=== PATIENT | female | born 2000 | race Caucasian/White ===

== ENCOUNTER 2024-07-02 04:35 | Inpatient (IN) | payer OTHER, SELFPAY ==
[2024-07-02] VITALS (59 sets, daily range): BP systolic 95–149; BP diastolic 56–101; PULSE 70–131; RESP 16–20; TEMP 36.7–37.3; O2SAT 89–100; BMI 26.6
[2024-07-02] MEDS: RINGERS LACTATED 1000 ML 1,000 ML 100 ML IV (05:15)
[2024-07-02] MEDS: CLINDAMYCIN 900MG IVPB 900 MG in PRE-MIXED 1 BAG 50 MG IV (05:30)
--- NOTE | 2024-07-02 05:37 | PD.LDHP ---
Documentation for date of: 07/02/24 OB Labor/Induct. HPI History of Present Illness Chief complaint: Active labor : 2 Para: 0 Term pregnancies: 0 History of Abortions: Spontaneous and Elective: 1 History of sections: No History of : No AAKASH: 07/10/24 Gestational Age (weeks): 38 Gestational Age (days): 6 History of present illness: Patient is a 23-year-old -0-1-0 history of 1 miscarriage in the past who presented to labor and delivery in active labor 6 cm dilated with a moderate amount of vaginal bleeding. heart tones are category 1. Patient is neha regularly every 2 minutes. She was admitted in labor and does desire epidural. She is positive for GBBS and is allergic to penicillin. Plan to start clindamycin. She is O- and received RhoGAM this . History of Present Dating criteria: LMP confirmed by 1st trimester US Ultrasounds: normal mid trimester US Obstetrical complications: none Narrative: Anxiety/depression on no medications this Labs Maternal Blood Type: O Neg Labs: Positive: Rubella Titre and Group Beta Strep, Negative: RPR, Hepatitis B, HIV, Chlamydia and Gonorrhea and Unknown: Herpes Type 1 and Herpes Type 2 Review of Systems Constitutional Constitutional: Reports system reviewed and no additional complaints, except as documented Comments: Patient reports vaginal bleeding start this morning no loss of fluids good movement and painful regular uterine contractions every 2 to 3 minutes. Patient has been laboring at home almost 24 hours. Past Medical History Surgical History SURGICAL: Negative Section Past Medical History Comments PMH COMMENT: History of cholecystectomy, history of arthroscopy on both hips, history of tonsillectomy, history of wisdom teeth removal. History of anxiety depression. History of Prozac use prior to . Meds Home Medications and Allergies Home Medications ?Medication ?Instructions ?Recorded ?Confirmed ?Type No Known Home Medications 07/02/24 07/02/24 History Allergies Allergy/AdvReac Type Severity Reaction Status Date / Time amoxicillin Allergy Severe Hives Verified 07/02/24 05:44 Penicillins Allergy Severe Hives Verified 07/02/24 05:44 OB Exam Physical Exam Vital signs: Pulse BP Pulse Ox 108 H 126/78 98 07/02/24 04:51 07/02/24 04:51 07/02/24 05:33 Routine Abdominal Exam Abdominal: Present soft Detailed Labor and Delivery Exam Dilation (cm): 6 Effacement (%): 90 Cervix position: anterior station: -1 Consistency: soft Presentation: Vertex Membranes: intact monitor accelerations: 15x15 monitor decelerations: None penitentiary variability: Moderate (11-25) Contraction frequency (min): 2 Contraction duration (sec): 60 Tachysystole: No Contraction intensity: Strong OB Assessment & Plan Additional Plan Induction method: none Plan: anticipate NVD and GBS prophylaxis tx Additional Plan Comment: Start clindamycin for positive GBBS as patient is allergic to penicillin. 2 units on hold for moderate vaginal bleeding. Patient desires epidural and anesthesia has been called.
[2024-07-02 05:46] LABS: Basophils % (Auto) 0 % (0-2.5); Eosinophils % (Auto) 0 % (0-10); Hematocrit 40.7 % (36.0-46.0); Hemoglobin 13.9 g/dL (12.0-16.0); Immature Granulocytes % (Auto) 0 % (0-0); Immature Granulocytes Auto 0.04 Thou/mm3 (0.00-0.00); Lymphocytes # (Auto) 1.2 Thou/mm3 (1.0-4.8); Lymphocytes % (Auto) 12 % (10-50); Mean Corpuscular HGB Conc 34.2 g/dl (31.0-37.0); Mean Corpuscular Hemoglobin 28.5 pg (25.0-35.0); Mean Corpuscular Volume 84 fL (80-100); Monocytes # (Auto) 0.2 Thou/mm3 (0.0-0.8); Monocytes % (Auto) 2 % (0-12); Neutrophils # (Auto) 8.2 Thou/mm3 (1.8-7.7); Neutrophils % (Auto) 85 % (37-80); Nucleated Red Blood Cell % 0 /100 WBC (0); Platelet Count 225 Thou/mm3 (140-440); RDW Standard Deviation 40.2 fL (36.4-46.3); Red Blood Count 4.87 Miln/mm3 (4.00-5.20); White Blood Count 9.6 Thou/mm3 (3.6-11.0)
[2024-07-02 06:28] LABS: Syphilis Nonreactive (Nonreactive)
[2024-07-02] MEDS: OXYTOCIN in NS 20 units 20 UNIT/1,000 ML BAG 125 UNIT IV (06:44)
[2024-07-02] MEDS: LIDOCAINE HCL 1% 20 ML VIAL INFL (06:56)
[2024-07-02] MEDS: BENZO/LANO/ALOE (Dermoplast) 60 GM CAN 1 SPRAY TOP ×2 (07:30→14:37)
[2024-07-02] MEDS: KETOROLAC INJ 30 MG/ML VIAL IVP (08:21)
[2024-07-02] MEDS: DOCUSATE SOD 100 MG CAPSULE PO ×2 (08:25→21:00)
[2024-07-02 14:20] LABS: Basophils % (Auto) 0 % (0-2.5); Eosinophils % (Auto) 0 % (0-10); Hematocrit 32.1 % (36.0-46.0); Hemoglobin 11.1 g/dL (12.0-16.0); Immature Granulocytes % (Auto) 1 % (0-0); Immature Granulocytes Auto 0.08 Thou/mm3 (0.00-0.00); Lymphocytes # (Auto) 1.6 Thou/mm3 (1.0-4.8); Lymphocytes % (Auto) 10 % (10-50); Mean Corpuscular HGB Conc 34.6 g/dl (31.0-37.0); Mean Corpuscular Hemoglobin 28.8 pg (25.0-35.0); Mean Corpuscular Volume 83 fL (80-100); Monocytes # (Auto) 0.9 Thou/mm3 (0.0-0.8); Monocytes % (Auto) 6 % (0-12); Neutrophils % (Auto) 84 % (37-80); Nucleated Red Blood Cell % 0 /100 WBC (0); Platelet Count 228 Thou/mm3 (140-440); RDW Standard Deviation 40.2 fL (36.4-46.3); Red Blood Count 3.85 Miln/mm3 (4.00-5.20); White Blood Count 15.6 Thou/mm3 (3.6-11.0)
--- NOTE | 2024-07-02 15:38 | OBDSUM_ITS ---
Data (Real) Data Hx Section: No Maternal Blood Type: O Neg Rubella Titre: Positive RPR: Non-reactive Labs: Positive: Group Beta Strep, Negative: RPR, Hepatitis B, HIV, Chlamydia and Gonorrhea and Unknown: Herpes Type 1 and Herpes Type 2 : 2 Term: 0 : 0 : 1 Delivery Data (Real) Labor Data Stimulated/Augmented: No Induction: No Rupture Type: SROM Amniotic Fluid: Clear Delivery Data EDC: 07/10/24 EDC calculated by:: LMP/early US confirmation Gestational age (weeks): 38 Gestational age (days): 6 Delivered by: Joelle Mariscal Software Support Technician at delivery: No (FOB) Episiotomy Episiotomy: Midline (Performed for decelerations with pushing) Perineal repair Sutures used for repair: 4.0 Chromic and other (2-0 chromic) EBL Estimated blood loss (ml): 400 Umbilical Cord Umbilical Vessels: 3 Nuchal Cord: None Body Cord: None Additional Procedures The [facility] 23 [facility] to [facility] and D about 0430 on 07/02/24 in active labor with a moderate amount of VB. She was neha every 2-3 minutes and was 6/90/-1 with a BBOW on presentation. GBBS+ and allergic to PCN. Clindamycin was started. Pt considered an epidural but had progressed rapidly to 8-9 cm and then declined epidural placement. Pt progressed to complete in about two hours and pushed approximately 15-20 minutes delivering a liveborn female. Findings: Liveborn female, DIANA, no nuchal cord or meconium. APGARS were 8 and 9. Weight is still pending but approximately 8 lbs. Delivery time was 0638. The placenta was complete, spontaneous and grossly WNL, delivering at 0644. A MLE was performed secondary to FHT decelerations to the 80s with pushing. It was repaired in a standard fashion with 4-0 and 2-0 chromic. Complications were none. Mom and baby were stable in the delivery room. Complications Complications: None [place] [employer] (Real) [place] [employer] 's name: Tori Kelly
[2024-07-02] MEDS: IBUPROFEN TAB 400 MG TABLET 800 MG PO (21:04)
[2024-07-03 04:00] VITALS: BP 96/57; PULSE 85; RESP 16; TEMP 36.6; O2SAT 97
[2024-07-03] MEDS: IBUPROFEN TAB 400 MG TABLET 800 MG PO (07:22)
[2024-07-03 09:38] VITALS: BP 107/68; PULSE 69; RESP 18; TEMP 36.3; O2SAT 97
[2024-07-03] MEDS: DOCUSATE SOD 100 MG CAPSULE PO (09:53)
[2024-07-03 10:16] VITALS: BP 95/60; PULSE 78; RESP 16; TEMP 36.4; O2SAT 100
[2024-07-03 12:00] VITALS: BP 105/62; PULSE 85; RESP 16; TEMP 36.4; O2SAT 97
--- NOTE | 2024-07-03 12:37 | PD.LDDS ---
DS: Providers Provider Date of admission: 07/02/24 04:51 Primary care physician: Physician No Primary/Family Admitting Provider: Joelle Mariscal MD Attending Provider on Admission: Ping Medina MD Consults: 07/02/24 08:04 Referral Routine Comment: Attending Provider on DC: Chastity Feng MD Discharging Provider: Chastity Feng MD DS: Diagnosis Discharge Diagnosis (1) Active labor at term: Status: Acute Problem List Completed Was Problem List Reviewed/Reconciled?: Yes Summary/Hosp Course Brief History: Patient is a 23-year-old -0-1-0 history of 1 miscarriage in the past who presented to labor and delivery in active labor 6 cm dilated with a moderate amount of vaginal bleeding. heart tones are category 1. Patient is neha regularly every 2 minutes. She was admitted in labor and does desire epidural. She is positive for GBBS and is allergic to penicillin. Plan to start clindamycin. She is O- and received RhoGAM this . She is now PPD 1 s/p uncomplicated at 38w6d after presenting in labor. She has had an uncomplicated course, meeting all milestones and feels ready for discharge home. She is ambulating without lightheadedness, tolerating regular diet no n/v, spontaneously voiding without issue. She has no chest pain or shortness of breath. No fevers or chills. Minimal, appropriate discomfort. Vitals normal, benign exam. Hemodymanically stable with no evidence of infection. PP Hgb . Status at Discharge Functional status at discharge: independent ambulation Overall status at discharge: patient is back to baseline Time Spent with Patient Time attestation: Total time spent providing and/or coordinating discharge services: Exam Vital Signs Temp Pulse Resp BP Pulse Ox O2 Del Method 97.6 F 78 16 95/60 100 Room Air 07/03/24 10:16 07/03/24 10:16 07/03/24 10:16 07/03/24 10:16 07/03/24 10:16 07/03/24 09:38 Narrative Exam General: well developed, well nourished, no acute distress, conversant Cardiac: normal heart rate Lungs: breathing without distress Abdomen: soft, post-gravid, non-tender, no rebound or guarding, Fundus firm at u-3cm. Extremities: no pain with palpation of calves, trace edema of BLE Discharge Plan Plan Patient Disposition: HOME (Self Care) Patient condition on transfer: Stable Prescriptions/Referrals Prescriptions/Med Rec: New ibuprofen 800 mg tablet 800 mg PO Q8H PRN (Reason: See Comments) 10 Days Qty: 30 0RF docusate sodium 100 mg Capsule 100 mg PO BID 15 Days Qty: 30 0RF Referrals: No Primary/Family,Physician [Primary Care Provider] - Patient/Caregiver Discharge Instructions Discharge Activity: activity as tolerated Other Discharge Activity Instructions:: Vaginal rest and no heavy lifting greater than 10 pounds for 6 weeks. Other Discharge Diet Instructions: Regular Education Materials: After a Vaginal Print Language: Citizen Of [place] Activity Restrictions/Additional Instructions: Follow up with OBGYN or CNM in 4 weeks. Stand Alone Forms: Moni Award Info., Patient Portal Info Letter Discharge Order Discharge Orders: Discharge (Routine); Ordered 07/03/24 Ordered By: Chastity Feng Planned Discharge Date 07/03/24
--- NOTE | 2024-07-03 13:29 | PC.SS ---
TANNING WHEEL FILLER conducted bedside contact with the patient to address nursing referral indicating patient possessed history of anxiety.? TANNING WHEEL FILLER introduced self and role.? Present with patient was spouse, Dominick Alvarez.? Patient gave permission for spouse to be present during discussion.? Patient confirmed past history of anxiety.? Patient stated participation with short term therapy and medication in 2019.? Patient not currently participating in either therapy or use of medication.? Patient reports that mood disturbance not impairing with daily functioning.? Patient denies current intent/plan of SI/HI.? Patient?s spouse reports no current concerns.? , Tori; is the patient?s first child.? delivered naturally.? Patient plans on the infant.? Patient is not aligned with WIC, SNAP or TANF.? Patient denies history with CWS.? Patient denies alcohol/drug abuse.? Patient denies history of domestic violence.? OB services provided by Dr. Medina.? Patient consistent with OB appointments.? Dr. Castellano is the infant?s capsule inspector.? Patient has access to appropriate supplies and equipment; to include a car seat.? FOB will provide transportation upon discharge.? Patient describes possessing support system consisting of FOB and extended family. ?TANNING WHEEL FILLER updated bedside nurse.? No further intervention at this time.?
== END 2024-07-03 15:32 | disposition home or self-care (01) | DRG 807 ==
LOC: S4SX 09:42 → S4NX 09:56
PROVIDERS: Obstetrics & Gynecology; Admitting Provider Obstetrics & Gynecology; Visit Provider Student in an Organized Health Care Education/Training Program
DX: O99.824 Streptococcus B carrier state complicating childbirth (principal); Z37.0 Single live birth; O76 Abnormality in fetal heart rate and rhythm complicating labor and delivery; Z3A.38 38 weeks gestation of pregnancy
CPT/HCPCS: 36415; 59409; 85025; 86780; 86850; 86870; 86900; 86901; 86921; 86922; 94762; J1885; J2590; J2790; J2795; J3010; J3490; J7120; S0077; A9270; J0736

== ENCOUNTER 2024-07-08 14:24 | Outpatient (AMBR) | payer OTHER, SELFPAY ==
--- NOTE | 2024-07-08 15:38 | LAC.VISIT ---
Assessment LAC Pain Pain Bilateral Nipple: Pain Intensity: Mild (1-3) Character of Pain: Pulling, Stabbing and Sharp Pain Comment: both nipples show signs of tissue breakdown, cracks and reddened LAC Assessment Breast Feeding Assessment Breast Feeding Ability: Fair [place] Complications: Difficult Latch [place] Activity Level: Sleepy Suck Quality: Tongue Thrusts [place] Jaw: Receding and Clentched [place] Lip Seal: Chomping and Tight Lips LAC Intervention Interventions Tools: Nipple Shield, Pump and Aid Nipple Shield Size: Medium Techniques Discussed: Latch, Position, Pumping, Breast Compression and Hand Expression Intervention Comments: Encouraged mom to do hand expression prior to breast feeding, as baby is having hard time with fast flow. with use of nipple shield this should help baby stay on easier and finish a full feed. so that she won't feel like baby is staying on the breast for long periods without feeding. Discharge Follow Up Appointment Date and Time: will follow up after consult with oral surgeon/dentist Other Referral Made: Yes Feeding Preference at Discharge: Exclusive LAC [place] Oral Assessment [place] Oral Assessment Prenulum Level: Posterior Lip: Tight Upper Lip Palate: Normal / Intact Oral Assessment Comment: baby does extend tongue past the gum line but has tongue thrust when latched. also clamps on occasion. Dental Referral made: Yes LAC Education Education : Education Topics: Feeding On Cue vs on Schedule, Hunger Cues, Lanolin, Milk Production, Nipple Care, Risk of Improper Latch Position and Signs of Adequate Intake Teaching Methods: Verbal instruction, Demonstration and Hand Out Resource Information Given: [facility] Services and Dental Referral Teaching Comment: Showed parents how to us SNS (supplemental nursing system), parents understood OP DC Assessment Discharge Follow Up Appointment Date and Time: will follow up after consult with oral surgeon/dentist Other Referral Made: Yes Visit Complete?: Yes
== END 2024-07-31 23:59 | disposition home or self-care (01) ==
LOC: HODLAC 14:24
DX: Z39.1 Encounter for care and examination of lactating mother (principal)

== ENCOUNTER 2024-07-09 14:09 | Outpatient (AMBR) | payer OTHER, SELFPAY ==
--- NOTE | 2024-07-09 15:07 | LAC.VISIT ---
Assessment Alternative Milk Expression Alternative Milk Expression Alternative Method Used: Yes Method Used: Hand Expression and Pumping Alternative Method Comment: mom pumping to supplement milk in an SNS. used first time over night and felt that it was very successful. baby tolerated very well and had better sleep Alternative Method Used Reason: Poor Feeding and Sore Nipples Alternative Method Produced Milk / Colostrum: Yes LAC Intervention Interventions Tools: Nipple Shield and Aid Nipple Shield Size: Medium Techniques Discussed: Latch Discharge Follow Up Appointment Date and Time: 07-16-24 Other Referral Made: No Feeding Preference at Discharge: Exclusive LAC Latch Score LATCH Score Latch: Grasps Breast, Rythmic Suck Audible Swallow: Spontaneous, Intermittent, Frequent Nipple Type: Everted After Stimulation Comfort: Red, Small Blisters, Bruises Hold: Minimal Assistance Needed Total Score: 8 LAC Oral Assessment [place] Oral Assessment Prenulum Level: Posterior Lip: Normal Exam Oral Assessment Comment: baby had lip tie release today at [facility]. baby tolerated well and breastfed very well. lip flanged very well around the breast and did a full feed of 16 minutes straight. LAC Education Education : Education Topic Comment: Talked with parents on how to identify if there are still issues with posterior tongue tie. they understood OP DC Assessment Discharge Follow Up Appointment Date and Time: 07-16-24 Other Referral Made: No Visit Complete?: Yes
== END 2024-07-31 23:59 | disposition home or self-care (01) ==
LOC: HODLAC 14:09
DX: Z39.1 Encounter for care and examination of lactating mother (principal)

== ENCOUNTER 2024-07-16 14:14 | Outpatient (AMBR) | payer OTHER, SELFPAY ==
--- NOTE | 2024-07-16 15:05 | LAC.VISIT ---
Assessment Alternative Milk Expression Alternative Milk Expression Alternative Method Used: No Alternative Method Used Reason: Sore Nipples LAC Assessment Breast Feeding Assessment Date of : 07/02/24 Current Age of baby: 2 (weeks) Weight: 3492.661 g Current weight of baby: 2794.129 g Breast Feeding Ability: Well [place] Activity Level: Sleepy Muscle Tone: With In Normal Limits [place] Suck Quality: Areolar Compression, Rhythmic and Tongue Retracts Effective Suck: Yes [place] Swallow: Audible [place] Jaw: With In Norml Limits and Receding Lip Seal: Good Feeding Posistion: Football Additional Latch or Posistion Assistance Needed: None Breast Feeding Comment: baby did a really good feed, although she refused to latch directly to the breast. A nipple shield was needed to get her to latch and nurse. mom is very comforatable using the nipple shield and was successful in getting baby to latch and nurse. since at this time babys weight has dropped in the last week encouraged mom to continue to use the nipple shield instead of making baby latch to skin. stating that baby was going to expend extra energy to latch directly to breast. parents agreed. Breast Feeding Comment: baby still showing many signs of posterior tongue tie, explained that a second opinion might be good. going to someone who has more experience with posterior ties. Pre Weight (before feeding): 3229.578 g Post Weight (post feeding): 3247.721 g % gained or lost: 1% Gain LAC Intervention Interventions Tools: Nipple Shield and Breast Shells Nipple Shield Size: Medium Techniques Discussed: Latch, Position and Pumping Intervention Comments: mom had questions regarding when to pump and for how long. now that baby is back to doing better at the breast. explained that she doesn't need to pump all the time, if she needs to help empty a breast or pump the opposite breast than the one baby nursed on to get relief that would be appropriate. at this time discouraged over pumping to avoid engorgement. parents understood LAC Latch Score LATCH Score Latch: Repeat Attempt to Hold Nipple Audible Swallow: Spontaneous, Intermittent, Frequent Nipple Type: Everted After Stimulation Comfort: Soft, Nontender Hold: No Assistance Needed Total Score: 9 LAC Oral Assessment Oral Assessment Prenulum Level: Posterior Lip: Normal Exam Palate: Normal / Intact Dental Referral made: Yes Oral Assessment Comment: second opinion for posterior tie OP DC Assessment Discharge Visit Complete?: Yes
== END 2024-07-31 23:59 | disposition home or self-care (01) ==
LOC: HODLAC 14:14
DX: Z39.1 Encounter for care and examination of lactating mother (principal)

== ENCOUNTER 2024-08-06 13:04 | Outpatient (AMBR) | payer OTHER, SELFPAY ==
--- NOTE | 2024-08-06 13:50 | LACNOTE_ITS ---
Assessment LAC Assessment Breast Feeding Assessment Weight: 3492.661 g Current weight of baby: 3225.042 g Breast Feeding Ability: Well Complications Comment: oral tissue tethers have been released and feed was very good with a good amount of transfer in that time at the breast Activity Level: Awake / Alert and Rooting [place] Muscle Tone: Tense [place] Suck Quality: Areolar Compression, Rhythmic and Tongue Cups Well Effective [place] Suck: Yes [place] Swallow: Audible and Observed [place] Jaw: With In Norml Limits [place] Lip Seal: Good Feeding Posistion: Football Additional Latch or Posistion Assistance Needed: None Pre Weight (before feeding): 3225.042 g Post Weight (post feeding): 3229.578 g % gained or lost: No Change LAC Intervention Discharge Follow Up Appointment Date and Time: one week, August 13, 2024 for weight in Other Referral Made: No LAC Latch Score LATCH Score Latch: Grasps Breast, Rythmic Suck Audible Swallow: Spontaneous, Intermittent, Frequent Nipple Type: Everted After Stimulation Comfort: Soft, Nontender Hold: Minimal Assistance Needed Total Score: 9 LAC Oral Assessment [place] Oral Assessment Prenulum Level: Normal Lip: Normal Exam Palate: Normal / Intact Oral Assessment Comment: Tongue tie, Lip tie released yesterday, August 05, 2024, by Dr. Davis at [facility]. Mom stated that after the release it was the first time she breastfed without any pain on latch or during the feed that she has had since she started . Also stated that baby did very well over night with feeds, she lasted longer and was more satisified at the breast and mom felt like her breast was more empty at the end of the fed than previous feeds. OP DC Assessment Discharge Follow Up Appointment Date and Time: one week, August 13, 2024 for weight in Other Referral Made: No Visit Complete?: Yes
== END 2024-08-31 23:59 | disposition home or self-care (01) ==
LOC: HODLAC 13:04
DX: Z39.1 Encounter for care and examination of lactating mother (principal)

== ENCOUNTER 2024-08-24 13:41 | Outpatient (AMBR) | payer OTHER, SELFPAY ==
--- NOTE | 2024-08-24 15:33 | LAC.VISIT ---
Assessment LAC Assessment Breast Feeding Assessment Breast Feeding Comment: baby is being more effective at the breast, suck is stronger and baby able to do extended amount of time with out getting tired. parents have stopped using bottles to supplement as of 3 days ago. baby is emptying out breast more sufficently. Pre Weight (before feeding): 4053.982 g Post Weight (post feeding): 4110.681 g % gained or lost: 1% Gain LAC Intervention Discharge Follow Up Appointment Date and Time: as needed for wieghts ins and other issue Other Referral Made: No Feeding Preference at Discharge: Exclusive LAC Oral Assessment [place] Oral Assessment Prenulum Level: Normal Lip: Normal Exam Palate: High Oral Assessment Comment: baby's oral tissues clippings look good, under tongue healing well, possibly healed back same, but is more elastic. OP DC Assessment Discharge Follow Up Appointment Date and Time: as needed for wieghts ins and other issue Other Referral Made: No Visit Complete?: Yes
== END 2024-08-31 23:59 | disposition home or self-care (01) ==
LOC: HODLAC 13:41
DX: Z39.1 Encounter for care and examination of lactating mother (principal)